=== PATIENT | female | born 1990 ===

== ENCOUNTER 2018-03-15 16:21 | Emergency (ER) | payer SELFPAY ==
[2018-03-15 16:28] VITALS: BMI 32.0
[2018-03-15 16:31] VITALS: RESP 18
[2018-03-15] MEDS ORDERED: guaiFENesin 200 mg/10 ml Syrup UD PO ONE (17:09)
--- NOTE | 2018-03-15 17:14 | ED PDOC ---
Arrival/HPI - General Chief Complaint: Cough, Cold, Congestion Time Seen by Provider: 03/15/18 16:38 Historian: Patient - History of Present Illness Narrative History of Present Illness (Text): 03/15/18 17:11 19-year-old female with past medical history of asthma, complains of 3 day h/o productive cough, wheezing, chest tightness, bodyaches and vomiting. Patient reports that she was see at [facility] recently and was not Rx any medications. Otherwise: (+) tactile fever, (-) chills, (+) chest pain with coughing, (-) dyspnea, (-) hemoptysis, (-) upper back pain, (-) abdominal pain, (-) diarrhea, (-) travel, (-) recent prolonged immobility. PMD Guy Past Medical History - Past History Past History: No Previous - Infectious Disease Hx of Infectious Diseases: None - Tetanus Immunization Tetanus Immunization: Unknown - Past Medical History Past Medical History: No Previous - Cardiac Hx Cardiac Disorders: Yes Other/Comment: heart murmur - Pulmonary Hx Respiratory Disorders: No - Neurological Hx Neurological Disorder: No - HEENT Hx HEENT Disorder: No - Renal Hx Renal Disorder: No - Endocrine/Metabolic Hx Endocrine Disorders: No - Hematological/Oncological Hx Blood Disorders: No - Integumentary Hx Dermatological Disorder: No - Musculoskeletal/Rheumatological Hx Musculoskeletal Disorders: No Hx Falls: No - Gastrointestinal Hx Gastrointestinal Disorders: No - Genitourinary/Gynecological Hx Genitourinary Disorders: No - Psychiatric Hx Psychophysiologic Disorder: No Hx Depression: No Hx Emotional Abuse: No Hx Physical Abuse: No Hx Substance Use: No - Past Surgical History Past Surgical History: No Previous - Surgical History Hx Section: Yes - Anesthesia Hx Anesthesia: Yes Hx Anesthesia Reactions: No Hx Malignant Hyperthermia: No - Suicidal Assessment Feels Threatened In Home Enviroment: No Family/Social History Family/Social History: No Known Family HX Smoking Status: Never Smoked Hx Alcohol Use: No Hx Substance Use: No Hx Substance Use Treatment: No Allergies/Home Meds Allergies/Adverse Reactions: Allergies No Known Allergies Allergy (Verified 03/15/18 16:28) Review of Systems - Review of Systems Constitutional: Fatigue, Fevers ENT: absent: Sore Throat, Rhinorrhea Respiratory: SOB, Cough, Sputum, Wheezing Cardiovascular: Chest Pain. absent: Palpitations Gastrointestinal: Nausea, Vomiting. absent: Abdominal Pain, Diarrhea Musculoskeletal: Arthralgias. absent: Back Pain, Neck Pain Skin: absent: Rash, Pruritis, Skin Lesions Neurological: absent: Headache, Dizziness Physical Exam - Physical Exam Narrative Physical Exam (Text): 03/15/18 17:13 GENERAL APPEARANCE: Patient is awake, alert, oriented x 3, in no acute distress. SKIN: Warm, dry; (-) cyanosis. EYES: (-) conjunctival pallor. ENMT: Mucous membranes moist. Airway patent: (-) stridor. Pharynx: (-) swelling, (-) erythema, (-) exudate. NECK: (-) tenderness, (-) stiffness, (-) lymphadenopathy. CHEST AND RESPIRATORY: (+) scattered rhonchi, (-) rales, (+) b/l expiratory wheezes, (-) pleural rub; breath sounds equal bilaterally. HEART AND CARDIOVASCULAR: (-) irregularity; (-) murmur, (-) gallop. ABDOMEN AND GI: Soft; (-) tenderness. EXTREMITIES: (-) deformity; (-) edema. NEURO AND PSYCH: Mental status as above. Cranial nerves grossly intact; strength symmetric. Vital Signs Temp Pulse Resp BP Pulse Ox 03/15/18 16:30 97.8 F 82 18 110/72 94 L Medical Decision Making ED Course and Treatment: 03/15/18 17:13 EKG: NSR at 69 bpm, (-) acute ST changes, as read by DANNA. Patient medicated with prednisone po, duoneb x2, guaifenesin po, zofran po. On reevaluation, patient reports improvement of symptoms, denies any CP, SOB or wheezing. On exam, patient remains awake alert and oriented 3 in no acute distress. Neck is supple, lungs are clear to auscultation, cardiac regular rate and rhythm. Advised to follow up with primary care physician in 1-2 days without fail. Advised to take medication as prescribed. Return to the emergency room at any time for any new or worsening symptoms. Patient states she fully agrees with and understands discharge instructions. States that she agrees with the plan and disposition. Verbalized and repeated discharge instructions and plan. I have given the patient opportunity to ask any additional questions. - Medication Orders Current Medication Orders: Albuterol/Ipratropium (Duoneb 3 Mg/0.5 Mg (3 Ml) Ud) 3 ml IH Q15M TI Stop: 03/15/18 17:31 Azithromycin (Zithromax) 500 mg PO STAT STA; Protocol Stop: 03/15/18 17:10 - PA / [employer]IST / Resident Statement / has reviewed & agrees with the documentation as recorded. Disposition/Present on Arrival - Present on Arrival Any Indicators Present on Arrival: No History of DVT/PE: No History of Uncontrolled Diabetes: No Urinary Catheter: No History of Decub. Ulcer: No History Surgical Site Infection Following: None - Disposition Have Diagnosis and Disposition been Completed?: Yes Diagnosis: Asthmatic bronchitis Disposition Time: 19:15 Patient Plan: Discharge Patient Problems: Current Active Problems Problem Status Onset Asthmatic bronchitis Acute Condition: IMPROVED Discharge Instructions (ExitCare): Asthma, Adult (DC), Acute Bronchitis Additional Instructions: Thank you for letting us take care of you today. You were treated for asthmatic bronchitis. The emergency medical care you received today was directed at your acute symptoms. If you were prescribed any medication, please fill it and take as directed. It may take several days for your symptoms to resolve. Return to the Emergency Department if your symptoms worsen, do not improve, or if you have any other problems. Please contact your doctor in 2 days for re-evaluation and follow up. Bring any paperwork you were given at discharge with you along with any medications you are taking to your follow up visit. Our treatment cannot replace ongoing medical care by a primary care provider (PCP) outside of the emergency department. Thank you for allowing the [facility] team to be part of your care today. Prescriptions: Albuterol HFA [Ventolin HFA 90 mcg/actuation (8 g)] 2 puff IH [id number] #1 puff Albuterol 0.083% [Albuterol Sulfate 3 Ml] 3 ml IH Q4 #100 neb Azithromycin [Zithromax] 250 mg PO DAILY #4 tab Guaifenesin 400 mg PO QID #20 tablet predniSONE [predniSONE Tab] 40 mg PO DAILY #8 tab Forms: [employer] (Maltese), WORK NOTE
[2018-03-15] MEDS: Albuterol-Ipratrop 3 mg / 0.5 (3 ml) UD IH SCH (18:36)
[2018-03-15 20:15] VITALS: BP 103/68; PULSE 101; TEMP 98.7; O2SAT 96
--- NOTE | 2018-03-15 23:10 | CARD ---
APPROVED REPORT Date of service: 03/15/2018 EKG Measurement Heart [id number] <Conclusion> Normal sinus rhythm Normal ECG
== END 2018-03-15 20:15 | disposition home or self-care (01) ==
LOC: ED 16:21
DX: J45.909 Unspecified asthma, uncomplicated (principal)